=== PATIENT | female | born 1950 | race Caucasian/White ===

== ENCOUNTER 2019-05-31 10:38 | Emergency (ER) | payer MEDICARE, OTHER ==
--- NOTE | 2019-05-31 10:56 | ER Report ---
History and Physical Time Seen By MD: 10:52 Hx. of Stated Complaint: FALL DOWN 3 STAIRS - LACERATION TO FOREHEAD AND PAIN TO LEFT ANKLE HPI/ROS CHIEF COMPLAINT: Fall with head injury HISTORY OF PRESENT ILLNESS: Patient is a 68-year-old female who presents to the emergency department with complaint of fall with head injury no loss of consciousness. Patient is not on any significant anticoagulation. She sustained a V-shaped laceration to her forehead with minimal oozing. She denies nausea she is also reporting of pain to her left ankle and foot. Cause of the fall was inversion ankle injury leading her to hit a concrete step with her forehead. She denies any other injuries at this time. She is unknown with her last tetanus shot. REVIEW OF SYSTEMS: Respiratory: No cough, no dyspnea. Cardiovascular: No chest pain, no palpitations. Gastrointestinal: No vomiting, no abdominal pain. Musculoskeletal: No back pain. Left ankle pain Skin: V-shaped laceration approximately 4 cm to the forehead and a 1 cm laceration to the emergency Allergies: Coded Allergies: No Known Drug Allergies (Unverified , 05/31/19) Home Meds Reported Medications Lisinopril (LISINOPRIL) 20 Mg Tablet, 20 MG PO QDAY, TAB 05/31/19 Atorvastatin Calcium (LIPITOR) 20 Mg Tablet, 1 TAB PO QDAY, TAB 05/31/19 Levothyroxine Sodium (LEVOTHYROXINE SODIUM) 100 Mcg Tablet, 100 MCG PO QDAY, TAB 05/31/19 Esomeprazole Magnesium (NEXIUM) 20 Mg Capsule.dr, 1 CAP PO QDAY, CAP 05/31/19 Cholecalciferol (Vitamin D3) (VITAMIN D) 2,000 Unit Tablet, 2000 UNIT PO DAILY 05/31/19 Calcium Crb&Cit/D3/Min34/Juhi (CITRACAL + BONE DENSITY TABLET) 1 Each Tablet, 1 EACH PO 05/31/19 Past Medical/Surgical History Hypertension, hypercholesterol, hypothyroidism Constitutional Vital Sign - Last 24 Hours 05/31/19 05/31/19 10:48 11:00 Temp 98.5 Pulse 78 62 Resp 16 B/P (MAP) 194/93 157/79 (105) Pulse Ox 94 95 O2 Delivery Room Air Physical Exam General Appearance: The patient is alert, has no immediate need for airway protection and no current signs of toxicity. Eyes: Pupils equal and round no injection. Musculoskeletal: Neck: Neck is supple and non tender. Extremities have full range of motion there is tenderness to the dorsum of the left foot along with the lateral malleolus of the left ankle Skin: Patient is a 4 cm V-shaped laceration to the middle of the forehead and a 1 cm horizontal laceration to the bridge of the nose. Medical Decision Making EKG/Imaging Imaging FACILITY: [facility] PATIENT NAME: Marguerite Hutson : 1950 MR: [id number] V: [id number] EXAM DATE: ORDERING PHYSICIAN: CARA BRIONES TECHNOLOGIST: Location: [facility] [place] Patient: Marguerite Hutson : 1950 Visit/Account:[id number] Date of Sevice: 05/31/2019 CT BRAIN NO CONTRAST Indication: trauma Comparison: None. Technique: Noncontrast head CT vertex to the skull base obtained. One of the following dose optimization techniques was utilized in the performance of this exam: automated exposure control; adjustment of the mA and/or kV according to the patient's size; or use of an iterative reconstruction technique. Specific details can be referenced in the facility's radiology CT exam operational policy. Findings: Brain: Leigh-white matter differentiation and cortex are maintained. Ventricles and sulci: The ventricles and sulci are symmetrically prominent. There is no abnormal extra-axial fluid collection. Paranasal sinuses:Visualized paranasal sinuses and mastoid air cells are clear. Calvarium:Bones of the skull and skull base are intact. Orbits and soft tissues: Soft tissue swelling is seen midline of the forehead. Impression: 1. No evidence of infarct hemorrhage or mass. 2. Age-related cerebral volume loss. Report Dictated By: Fredrick Castelan at 05/31/2019 12:21 PM Report E-Signed By: Fredrick Castelan at 05/31/2019 12:24 PM WSN:[id number] FACILITY: [facility] PATIENT NAME: Marguerite Hutson : 1950 MR: [id number] V: [id number] EXAM DATE: [id number] ORDERING PHYSICIAN: CARA BRIONES TECHNOLOGIST: Location: [facility] [place] Patient: Marguerite Hutson : 1950 Visit/Account:[id number] Date of Sevice: 05/31/2019 CT FACIAL BONES W/O CONTRAST Indication: Fall down stairs, hit face. Comparison: None. Technique: Noncontrast CT mid calvarium through the mandible was performed. One of the following dose optimization techniques was utilized in the performance of this exam: automated exposure control; adjustment of the mA and/or kV according to the patient's size; or use of an iterative reconstruction technique. Specific details can be referenced in the facility's radiology CT exam operational policy. Findings: The right and left nasal bones are intact. The nasal septum is intact. The bilateral zygomatic arch, the lateral pterygoid plates, and the body and ramus of the mandible are intact. Medial lateral and inferior wall of the orbits bilaterally are intact. Paranasal sinuses and the mastoid air cells are clear. Soft tissues of the face are normal. IMPRESSION: Negative facial bone CT. No evidence of fracture. Report Dictated By: Fredrick Castelan at 05/31/2019 12:18 PM Report E-Signed By: Fredrick Castelan at 05/31/2019 12:24 PM WSN:[id number] FACILITY: [facility] PATIENT NAME: Marguerite Hutson : 1950 MR: [id number] V: [id number] EXAM DATE: [id number] ORDERING PHYSICIAN: CARA BRIONES TECHNOLOGIST: Location: [facility] [place] Patient: Marguerite Hutson : 1950 Visit/Account:[id number] Date of Sevice: 05/31/2019 ANKLE 3 VIEW MIN LEFT, FOOT 3 VIEW LEFT HISTORY: Fall downstairs, twisting injury COMPARISON: None. FINDINGS: 3 views left ankle are submitted. Findings suspicious for joint effusion. Lateral soft tissue swelling is seen. The distal tibia and fibula are intact. Mortise is symmetric. Talar dome is unremarkable. Lateral view demonstrates findings indicative of a small avulsion fracture from the dorsal surface of the navicular bone. Plantar calcaneal spurring is seen. 3 views of the foot are submitted demonstrate anatomic alignment. No additional fractures or destructive osseous finding. IMPRESSION: 3 views of the left foot and ankle demonstrate findings indicative of a small avulsion fracture from the dorsal anterior surface of the navicular bone. Report Dictated By: Villa Velásquez MD at 05/31/2019 12:07 PM Report E-Signed By: Villa Velásquez MD at 05/31/2019 12:14 PM WSN:[id number] ED Course/Re-evaluation ED Course Procedure: Laceration repair. Verbal consent was obtained from the patient. The 5 cm laceration on the face was anesthetized in the usual fashion. The wound was scrubbed, draped and explored to its base with a gloved finger. [ ] There were no deep structures involved. The wound was repaired with 13 simple interrupted 5-0 Ethilon sutures. The wound repair was simple. The procedure was performed by myself. Patient's tetanus status was updated. Decision to Disposition Date: May 31, 2019 Decision to Disposition Time: 12:32 Depart Departure Latest Vital Signs Vital Signs Date Time Temp Pulse Resp B/P (MAP) Pulse Ox O2 Delivery O2 Flow Rate FiO2 05/31/19 11:00 62 157/79 (105) 95 05/31/19 10:48 98.5 16 Room Air Impression: Primary Impression: Facial laceration Additional Impressions: Avulsion fracture of bone Ankle sprain Condition: Improved Disposition: HOME OR SELF-CARE Additional Instructions: Have your sutures removed in 3-5 days. Watch for signs or symptoms of infection as discussed and if they present go to the nearest emergency department for evaluation Your splint for the next 7-10 days and use your crutches. If you still have painful weightbearing after this time, you should follow up with your primary care provider. Problem Qualifiers Primary Impression: Facial laceration Encounter type: initial encounter Qualified Codes: S01.81XA - Laceration without foreign body of other part of head, initial encounter Additional Impressions: Ankle sprain Encounter type: initial encounter Involved ligament of ankle: unspecified ligament Laterality: left Qualified Codes: S93.402A - Sprain of unspecified ligament of left ankle, initial encounter CARA BRIONES MD May 31, 2019 10:56
[2019-05-31] MEDS ORDERED: LISI20TA29 PO (10:59)
[2019-05-31] MEDS ORDERED: ATOR20TA22 PO (10:59)
[2019-05-31] MEDS ORDERED: CALC-854 PO (10:59)
[2019-05-31] MEDS ORDERED: CHOL200018 PO (10:59)
[2019-05-31] MEDS ORDERED: ESOM20CA31 PO (10:59)
[2019-05-31] MEDS ORDERED: LEVO-3 PO (10:59)
[2019-05-31 11:00] VITALS: BP 157/79
[2019-05-31] MEDS ORDERED: DIPHTH/TETANUS/ACEL. PERTUSSIS IM ONLY ONE (11:25)
[2019-05-31] MEDS ORDERED: HYDROCOD/ACETAMIN 2.5-108/5 ML 5 ML UDC PO ONE (12:00)
--- NOTE | 2019-05-31 12:22 | RADIOLOGY IMAGING REPORT ---
FACILITY: [facility] [place] [place] PATIENT NAME: Marguerite Hutson : 1950 MR: [id number] V: [id number] EXAM DATE: ORDERING PHYSICIAN: CARA BRIONES TECHNOLOGIST: Location: [facility] Patient: Marguerite Hutson : 1950 Visit/Account:[id number] Date of Sevice: 05/31/2019 ANKLE 3 VIEW MIN LEFT, FOOT 3 VIEW LEFT HISTORY: Fall downstairs, twisting injury COMPARISON: None. FINDINGS: 3 views left ankle are submitted. Findings suspicious for joint effusion. Lateral soft tissue swellin g is seen. The distal tibia and fibula are intact. Mortise is symmetric. Talar dome is unremarkable. Lateral view demonstrates findings indicative of a small avulsion fracture from the dorsal surface of the navicular bone. Plantar calcaneal spurring is seen. 3 views of the foot are submitted demonstrate anatomic alignment. No additional fractures or destruct silke osseous finding. IMPRESSION: 3 views of the left foot and ankle demonstrate findings indicative of a small avulsion fracture from the dorsal anterior surface of the navicular bone. Report Dictated By: Villa Velásquez MD at 05/31/2019 12:07 PM Report E-Signed By: Villa Velásquez MD at 05/31/2019 12:14 PM WSN:[id number]
--- NOTE | 2019-05-31 12:23 | RADIOLOGY IMAGING REPORT ---
FACILITY: [facility] PATIENT NAME: Marguerite Hutson : 1950 MR: [id number] V: [id number] EXAM DATE: ORDERING PHYSICIAN: CARA BRIONES TECHNOLOGIST: Location: [facility] Patient: Marguerite Hutson : 1950 Visit/Account:[id number] Date of Sevice: 05/31/2019 ANKLE 3 VIEW MIN LEFT, FOOT 3 VIEW LEFT HISTORY: Fall downstairs, twisting injury COMPARISON: None. FINDINGS: 3 views left ankle are submitted. Findings suspicious for joint effusion. Lateral soft tissue swellin g is seen. The distal tibia and fibula are intact. Mortise is symmetric. Talar dome is unremarkable. Lateral view demonstrates findings indicative of a small avulsion fracture from the dorsal surface of the navicular bone. Plantar calcaneal spurring is seen. 3 views of the foot are submitted demonstrate anatomic alignment. No additional fractures or destruct silke osseous finding. IMPRESSION: 3 views of the left foot and ankle demonstrate findings indicative of a small avulsion fracture from the dorsal anterior surface of the navicular bone. Report Dictated By: Villa Velásquez MD at 05/31/2019 12:07 PM Report E-Signed By: Villa Velásquez MD at 05/31/2019 12:14 PM WSN:[id number]
--- NOTE | 2019-05-31 12:32 | RADIOLOGY IMAGING REPORT ---
[place] [facility] [place] NAME: Marguerite Hutson : 1950 MR: [id number] V: [id number] EXAM DATE: ORDERING PHYSICIAN: CARA BRIONES TECHNOLOGIST: Location: [facility] Patient: Marguerite Hutson : 1950 Visit/Account:[id number] Date of Sevice: 05/31/2019 CT BRAIN NO CONTRAST Indication: trauma Comparison: None. Technique: Noncontrast head CT vertex to the skull base obtained. One of the following dose optimizat ion techniques was utilized in the performance of this exam: automated exposure control; adjustment o f the mA and/or kV according to the patient's size; or use of an iterative reconstruction technique. Specific details can be referenced in the facility's radiology CT exam operational policy. Findings: Brain: Leigh-white matter differentiation and cortex are maintained. Ventricles and sulci: The ventricles and sulci are symmetrically prominent. There is no abnormal extr a-axial fluid collection. Paranasal sinuses:Visualized paranasal sinuses and mastoid air cells are clear. Calvarium:Bones of the skull and skull base are intact. Orbits and soft tissues: Soft tissue swelling is seen midline of the forehead. Impression: 1. No evidence of infarct hemorrhage or mass. 2. Age-related cerebral volume loss. Report Dictated By: Fredrick Castelan at 05/31/2019 12:21 PM Report E-Signed By: Fredrick Castelan at 05/31/2019 12:24 PM WSN:[id number]
--- NOTE | 2019-05-31 12:32 | RADIOLOGY IMAGING REPORT ---
FACILITY: [facility] PATIENT NAME: Marguerite Hutson : 1950 MR: [id number] V: [id number] EXAM DATE: ORDERING PHYSICIAN: CARA BRIONES TECHNOLOGIST: Location: [facility] [place] Patient: Marguerite Hutson : 1950 Visit/Account:[id number] Date of Sevice: 05/31/2019 CT FACIAL BONES W/O CONTRAST Indication: Fall down stairs, hit face. Comparison: None. Technique: Noncontrast CT mid calvarium through the mandible was performed. One of the following dos e optimization techniques was utilized in the performance of this exam: automated exposure control; a djustment of the mA and/or kV according to the patient's size; or use of an iterative reconstruction technique. Specific details can be referenced in the facility's radiology CT exam operational policy . Findings: The right and left nasal bones are intact. The nasal septum is intact. The bilateral zygomatic arch, the lateral pterygoid plates, and the body and ramus of the mandible ar e intact. Medial lateral and inferior wall of the orbits bilaterally are intact. Paranasal sinuses and the mast oid air cells are clear. Soft tissues of the face are normal. IMPRESSION: Negative facial bone CT. No evidence of fracture. Report Dictated By: Fredrick Castelan at 05/31/2019 12:18 PM Report E-Signed By: Fredrick Castelan at 05/31/2019 12:24 PM WSN:[id number]
== END 2019-05-31 12:38 | disposition home or self-care (01) ==
LOC: ER 11:00
DX: S01.81XA Laceration without foreign body of other part of head, initial encounter (principal); S93.402A Sprain of unspecified ligament of left ankle, initial encounter
CPT/HCPCS: 12013; 70450; 70486; 73610; 73630; 90471; 90715; 99284; L1930